=== PATIENT | male | born 1995 ===

== ENCOUNTER 2022-12-03 05:37 | Outpatient (CLI) | payer OTHER ==
[~2022-12-03] VITALS: Ht 170.2 cm; Wt 79.0 kg
== END 2022-12-04 08:52 | disposition home or self-care (01) ==
LOC: PREOP 05:37
PROVIDERS: ATTEND Orthopaedic Surgery
DX: Z01.818 Encounter for other preprocedural examination (principal)

== ENCOUNTER 2022-12-31 07:20 | Day surgery (SDC) | payer OTHER ==
--- NOTE | 2022-12-03 08:21 | HISTORY AND PHYSICAL ---
This will be for outpatient surgery on 12/10/2022 for hardware removal from his right knee. 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 He has since noted some grinding sensations and pain in his knee. Radiographs revealed a prominence of his hardware. It was backing out. Because of this, he desires surgical removal. REVIEW OF SYSTEMS: No chest pain, no shortness of breath. No dysuria. PAST MEDICAL HISTORY: None. PAST SURGICAL HISTORY: As above. FAMILY HISTORY: Noncontributory. PRIMARY CARE PROVIDER: [employer] [facility]. MEDICATIONS: None. ALLERGIES: NO KNOWN DRUG ALLERGIES. SOCIAL HISTORY: The patient denies alcohol and tobacco use. PHYSICAL EXAMINATION: GENERAL: The patient is well-developed, well-nourished, in no acute distress. HEENT: Normocephalic, atraumatic. Pupils equal, round, react to light. Oropharynx is clear. NECK: Supple. No lymphadenopathy. LUNGS: Clear to auscultation bilaterally. HEART: Regular rate and rhythm. ABDOMEN: Soft, nontender, nondistended. EXTREMITIES: Right knee demonstrates well healed portal sites and a suprapatellar incision site. There is some mild crepitus with range of motion of the knee and pain beyond 90 degrees of flexion. He is ligamentously stable in all planes. IMPRESSION: Prominent hardware, right knee. PLAN: Hardware removal, right knee, arthroscopic versus open. The risks, benefits, options, ramifications and recovery were discussed at length. He understands and wishes to proceed. This will be for 12/10/2022. Job ID: [id number] DocumentID: [id number] Dictated Date: 11/27/2022 13:59:07 Terrazzo Layer Helper Date: 11/27/2022 15:32:00 Dictated By: JOSE LUIS KILPATRICK MD
[~2022-12-31] VITALS: Ht 170 cm; Wt 79.0 kg
[2022-12-31] VITALS (9 sets, daily range): BP systolic 97–129; BP diastolic 48–90
[2022-12-31] MEDS ORDERED: LACTATED RINGERS 1,000 ML 1,000 ML IV PRN (07:30)
[2022-12-31] MEDS ORDERED: HYDROcodone/ACETAMINOPHEN 7.5 MG/325 MG TABLET PO PRN (07:30)
[2022-12-31] MEDS ORDERED: ceFAZolin INJECTION 2,000 MG in NS (IVPB) 50 ML 50 ML IV ONE (07:30)
--- NOTE | 2022-12-31 07:36 | Progress Note-Pre Operative ---
Pre-Operative Progress Note Date of Available H&P: Dec 03, 2022 Date H&P Reviewed: Dec 31, 2022 Time H&P Reviewed: 07:36 Changes from last HP none Pre-Operative Diagnosis: right knee symptomatic hardware JOSE LUIS KILPATRICK MD Dec 31, 2022 07:36
--- NOTE | 2022-12-31 07:37 | Progress Note-Post Operative ---
Post-Operative Progess Note Surgeon (s)/Loading Shovel Oiler (s) Surgeon JOSE LUIS KILPATRICK MD Loading Shovel Oiler: Maverick Don Pre-Operative Diagnosis right knee symptomatic hardware Post-Operative Diagnosis right knee symptomatic hardware Procedure & Operative Findings Date of Procedure 12/31/22 Procedure Performed/Findings right knee arthroscopic hardware removal Anesthesia Type GETA Estimated Blood Loss Estimated blood loss (mL): minimal Specimens/Packing Specimens Removed none Packing: none JOSE LUIS KILPATRICK MD Dec 31, 2022 07:37
[2022-12-31] MEDS ORDERED: morphine PRESERVATIVE free 10 MG/10 ML AMP ONE (07:45)
[2022-12-31] MEDS ORDERED: BUPIVACAINE 0.25% 30 ML VIAL ONE (07:46)
[2022-12-31] MEDS ORDERED: morphine PRESERVATIVE free 10 MG/10 ML AMP INJ ONE (07:53)
[2022-12-31] MEDS ORDERED: BUPIVACAINE 0.25% 30 ML VIAL INJ ONE (07:57)
[2022-12-31] MEDS ORDERED: proPOfol INJECTION 200 MG/20 ML VIAL IV ONE (09:17)
[2022-12-31] MEDS ORDERED: fentaNYL INJECTION 100 MCG/2 ML VIAL ONE (09:17)
[2022-12-31] MEDS ORDERED: ONDANSETRON INJECTION 4 MG/2 ML (SDV) ONE (09:17)
[2022-12-31] MEDS ORDERED: LIDOCAINE PF 2% 5 ML VIAL ONE (09:17)
[2022-12-31] MEDS ORDERED: SEVOFLURANE (ULTANE) 15 ML INHAL SOLN ONE ×2 (09:17→10:05)
[2022-12-31] MEDS ORDERED: MIDAZOLAM INJ 2 MG/2 ML VIAL ONE (09:18)
--- NOTE | 2022-12-31 10:26 | Anesthesia-General Post-Op ---
General Patient Condition Mental Status/LOC: Same as Preop Cardiovascular: Satisfactory Nausea/Vomiting: Absent Respiratory: Satisfactory Pain: Controlled Complications: Absent Post Op Complications Complications None Follow Up Care/Instructions Patient Instructions None needed. Anesthesia/Patient Condition Patient Condition Patient is doing well, no complaints, stable vital signs, no apparent adverse anesthesia problems. No complications reported per nursing. MILLIE ABDULLAHI CRNA Dec 31, 2022 10:26
[2022-12-31] MEDS ORDERED: MEPERIDINE INJ 50 MG/ML VIAL IVP ONE (10:30)
[2022-12-31] MEDS ORDERED: morphine INJ 10 MG/ML 1ML (SYR OR VIAL) IVP ONE (10:30)
[2022-12-31] MEDS ORDERED: ONDANSETRON INJECTION 4 MG/2 ML (SDV) IVP PRN (10:30)
[2022-12-31] MEDS ORDERED: fentaNYL INJECTION 100 MCG/2 ML VIAL IVP ONE (10:30)
--- NOTE | 2022-12-31 19:15 | OPERATIVE REPORT ---
DATE OF SERVICE: 12/31/2022 PREOPERATIVE DIAGNOSIS: Symptomatic right knee hardware. POSTOPERATIVE DIAGNOSIS: Symptomatic right knee hardware. PROCEDURE: Arthroscopic-assisted hardware removal from the right knee. SURGEON: Kenrick Kilpatrick M.D. CARCASS TRIMMER: Maverick Gomez, who assisted throughout the procedure and closed the incisions. ANESTHESIA: General endotracheal by Maverick Barnes CRNA. TOURNIQUET TIME: Not applicable. ESTIMATED BLOOD LOSS: Minimal. DRAINS: None. COMPLICATIONS: None. POSTOPERATIVE PLAN: Weightbearing as tolerated with progressive range of motion as tolerated. The patient was transported to the recovery room, awake and in stable condition. 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 This was performed in [facility]. The patient presented to the clinic with a prominent hardware intraarticularly with complaints of anterior knee pain. In extension, it was felt that there was impingement of the screw and washer. Because of this, it was recommended that the patient undergo operative treatment. DESCRIPTION OF PROCEDURE: After risks and benefits of the procedure were discussed and questions were answered and informed consent was signed and placed on the chart, the operative site was confirmed in the preoperative holding area initialed by surgeon. The patient was then transported to the operating room. After adequate levels of general endotracheal anesthetic were obtained, timeout was called, confirming the operative site. Examination under anesthesia revealed symmetric range of motion of 0/0/135 with negative Christa, negative anterior and posterior drawer. No varus or valgus laxity and negative pivot shift. The right lower extremity was prepped and draped in the usual sterile fashion. The knee joint was injected with 60 mL fluid and standard inferolateral portal was placed with arthroscope. The screw was easily identified and a percutaneous incision was made after localizing with a spinal needle. This was placed superomedially. A the screw was inserted under direct visualization. The screw was removed. An accessory portal was then made inferomedially and this was able to extract the washer without difficulty. The screw was then removed through the superior medial portal without difficulty. The knee was inspected. There was unfortunately noted to be grade IV chondral loss anterior to the intercondylar notch where the screw had been impacting the distal femur. The knee joint was copiously irrigated. The portal sites were closed with 4-0 nylon in simple interrupted fashion. Knee was injected with Duramorph. Port sites were infiltrated with plain Marcaine. A soft dressing was applied. The patient was transferred to the recovery room awake and stable condition. Job ID: [id number] DocumentID: [id number] Dictated Date: 12/31/2022 10:13:36 Banquet Captain Date: 12/31/2022 19:13:00 Dictated By: KENRICK KILPATRICK MD
== END 2022-12-31 12:15 | disposition home or self-care (01) ==
LOC: SDC 07:20
PROVIDERS: ATTEND Orthopaedic Surgery
DX: T84.84XA Pain due to internal orthopedic prosthetic devices, implants and grafts, initial encounter (principal); Y83.8 Other surgical procedures as the cause of abnormal reaction of the patient, or of later complication, without mention of misadventure at the time of the procedure
CPT/HCPCS: 87081